=== PATIENT | female | born 1995 | race Hispanic/Latino ===

== ENCOUNTER 2024-06-30 16:42 | Emergency (ER) | payer BC, SELFPAY ==
[2024-06-30 17:11] VITALS: BP 135/61
[2024-06-30 17:37] LABS: Urine Albumin Negative (Neg - Trace); Urine Bilirubin Negative (Negative); Urine Character Clear (Clear); Urine Color Yellow; Urine Glucose Negative (Negative); Urine Ketone Negative (Negative); Urine Leukocyte 1+ (Negative); Urine Nitrite Negative (Negative); Urine Occult Blood 1+ (Negative); Urine Urobilinogen Negative (Neg - 1+)
[2024-06-30 17:54] LABS: Blood Urea Nitrogen 16 mg/dl (7-17); Calcium 9.2 mg/dl (8.4-10.2); Carbon Dioxide 22 mmol/L (22-30); Chloride 106 mmol/L (98-107); Glucose 78 mg/dl (70-99); Sodium 137 mmol/L (135-145); eGFR > 60.00
[2024-06-30 18:06] LABS: Urine Mucus Few
[2024-06-30 18:09] LABS: Urine Bacteria Moderate (Negative)
[2024-06-30 21:14] VITALS: BMI 43.2
[2024-06-30 21:16] VITALS: BP 115/69
[2024-06-30 21:30] LABS: % Basophils 0.5 % (0-2); % Eosinophils 1.7 % (0-6); % Immature Granulocytes 0.3 % (0-0.5); % Lymphocytes 37.1 % (20.5-51.1); % Monocytes 9.3 % (1.7-9.3); % Neutrophils 51.1 % (42.2-75.2); Absolute Basophils 0.1 10^3/uL (0-0.2); Absolute Eosinophils 0.2 10^3/uL (0-0.7); Absolute Lymphocytes 3.8 10^3/uL (1.2-3.4); Absolute Neutrophils 5.3 10^3/uL (1.4-6.5); Hematocrit 32.4 % (37.0-47.0); Hemoglobin 10.4 g/dL (12.0-16.0); Mean Corp Hgb Conc. 32.1 g/dL (33.0-37.0); Mean Corpuscular Hgb 28.3 pg (27.0-31.0); Mean Corpuscular Volume 88.3 fL (81.0-99.0); Mean Platelet Volume 8.8 fL (7.4-10.4); Nucleated Red Blood Cells % 0 %; Platelet Count 295 10^3/uL (130-400); Red Blood Cell Count 3.67 10^6/uL (4.20-5.40); Red Cell Dist. Width 13.5 % (11.5-14.5); White Blood Cell Count 10.3 10^3/uL (4.8-10.8)
[2024-06-30 21:40] LABS: HCG, Serum Qualitative Screen Negative
[2024-06-30 21:43] LABS: Potassium 3.9 mmol/L (3.5-5.1)
[2024-06-30 23:12] VITALS: BP 116/70
--- NOTE | 2024-06-30 23:51 | ED.GENMED ---
History of Present Illness
General
Chief Complaint: Female Charrer/Gu symptoms
Time Seen by Provider: 06/30/24 22:43
History of Present Illness
History of Present Illness:
29-year-old female with prior history of ovarian cyst presenting to the emergency department for lower abdominal pressure and pain. Patient reports symptoms started about 2 days ago. Yesterday had 2 episodes of vomiting which is since resolved.
Notes increased pain when she has to have a bowel movement or urinate, increased pressure. Denies pain with urination. Reports some brownish discharge, scant. Denies any concern for STD. Denies any history of abdominal surgeries. Denies fever.
Denies chest pain, difficulty breathing. Last menstrual period was the beginning of the month. Denies additional acute medical complaints
Phy Exam
Physical Exam
Physical Exam:
General: Well-appearing, no clinical signs of dehydration, nontoxic and in no acute distress
HEENT: protecting airway
Neck: appears supple
CV: Normal heart rate, regular rhythm
Resp: No accessory muscle use, no increased work of breathing
Abd: Soft and non-distended, mild tenderness to the suprapubic abdomen and left lower pelvic region, without rebound or guarding
Extremities: No deformities, no swelling
Neuro: alert, no focal neurologic deficit
: deferred
Rectal: deferred
Psych: Normal affect
Skin: Intact
Course
Orders/Labs/Results
Orders:
Orders
06/30/24 17:15
Test Result ONCE
06/30/24 17:17
US Pelvis W Transvag Combined Urgent
Comment: hx of cysts
Reason For Exam: pelvic pain
06/30/24 17:26
Basic Metabolic Panel Urgent
Urinalysis Reflex To Culture Urgent
Date Specimen was Collected: 06/30/24
Time Specimen was Collected: 17:17
Urine Microscopic Reflex Cult Urgent
Urine Culture Urgent
DANI Source: U
Specimen Description:
Date Specimen was Collected: 06/30/24
Time Specimen was Collected: 17:17
06/30/24 21:23
Complete Blood Count/With Diff Urgent
HCG, Serum Qualitative Screen Routine
Potassium Routine
Abnormal Lab Results
06/30/24 06/30/24
17:26 21:23
RBC 3.67 L 10^6/uL
(4.20-5.40)
Hgb 10.4 L g/dL
(12.0-16.0)
Hct 32.4 L %
(37.0-47.0)
MCHC 32.1 L g/dL
(33.0-37.0)
Absolute Lymphs (auto) 3.8 H 10^3/uL
(1.2-3.4)
Absolute Monos (auto) 1.0 H 10^3/uL
(0.1-0.6)
Ur Occult Blood Reflex 1+ A
(Negative)
Leukocyte Esterase Rfl 1+ A
(Negative)
Urine RBC 3-6 A /HPF
(0-2)
Urine Bacteria (Reflex) Moderate A
(Negative)
06/30/24 21:23
06/30/24 21:23
Vital Signs
Initial and Last Documented VS:
Initial Vital Signs
Temp Pulse Resp BP Pulse Ox
98.1 F 68 16 135/61 100
06/30/24 17:11 06/30/24 17:11 06/30/24 17:11 06/30/24 17:11 06/30/24 17:11
Last Documented Vital Signs
Temp Pulse Resp BP Pulse Ox
98.9 F 66 17 116/70 99
06/30/24 21:16 06/30/24 23:12 06/30/24 23:12 06/30/24 23:12 06/30/24 23:12
MDM/Problems Addressed
MDM/Problems Addressed:
29-year-old female presenting for lower abdominal pelvic pain for the past 2 days. Vital signs on arrival are normal.
On exam patient is resting comfortably, no acute distress or discomfort. She is afebrile, nontoxic. Mild tenderness in suprapubic abdomen in the left lower pelvic region, no rebound or guarding. Suspect possible ovarian pathology versus urinary
tract infection. Patient notes history of cyst in the past, possible ovarian cyst. Lower suspicion for torsion given patient's level of comfort and minimal tenderness on exam. Plan for urinalysis, ultrasound imaging.
23:50 - ine does show some elements of infection with leukocytes and bacteria in the urine. Given patient's presenting symptoms and location of pain, will treat as a urinary tract infection. In addition, patient's pelvic ultrasound shows evidence
of a left ovarian cyst, possibly hemorrhagic in quality. No sign of torsion. Suspected source of patient's discomfort. Patient remains comfortable on exam. At this time feel that she is stable for discharge. Advised outpatient gynecologic
follow-up. Return precautions discussed and patient verbalized understanding.
*Critical Care Note
Total Time (30-74mins, 75-104mins- exclusive of procedures): Not Applicable
ED Attending Note
-
Portions of this chart may have been created with voice recognition software.� Occasional wrong word or��sound alike� substitutions may have occurred due to the inherent limitations of voice recognition software.
Discharge Plan
Departure
Referrals:
Joana Nye MD [Family Provider] -
Interventions
Interventions:
*Risk Screen - Suicide Last Done: 06/30/24 17:11
*General Assessment Last Done: 06/30/24 21:14
*Neglect/Abuse Screening Last Done: 06/30/24 21:14
*ED COVID-19 Vaccine History Last Done: 06/30/24 21:14
Discharge Date and Time
Print Language: TONGAN
[2024-07-01] MEDS: KEFLEX 500 MG PO (00:06)
== END 2024-07-01 00:20 | disposition home or self-care (01) ==
LOC: EMR 16:42
PROVIDERS: Emergency Medicine; Registered Nurse; EMERGENCY PHYSICIAN Student in an Organized Health Care Education/Training Program; FAMILY PHYSICIAN Family Medicine
DX: N83.202 Unspecified ovarian cyst, left side (principal); R11.10 Vomiting, unspecified; R10.2 Pelvic and perineal pain; N39.0 Urinary tract infection, site not specified
CPT/HCPCS: 99284; 76830; 76856; 80048; 81003; 81015; 84132; 84703; 85025; 87086